=== PATIENT | male | born 1990 | race Caucasian/White ===

== ENCOUNTER 2022-05-12 06:46 | Emergency (ER) | payer BC ==
[2022-05-12 07:05] VITALS: BP 128/80; PULSE 89; RESP 18; TEMP 98.1; BMI 30.1
== END 2022-05-12 10:16 | disposition home or self-care (01) ==
LOC: JER 06:46
PROC: 0HQEXZZ Repair Left Lower Arm Skin, External Approach (ICD-10-PCS; principal; 2022-05-12)
DX: S51.011A Laceration without foreign body of right elbow, initial encounter (principal); V00.841A Fall from standing electric scooter, initial encounter
CPT/HCPCS: 73070-TC-RT-FY; 73110-TC-LT-FY; 99282-25